=== PATIENT | female | born 1975 | race Caucasian/White ===

== ENCOUNTER → 2022-07-18 11:27 | Outpatient (BNVA) | payer BC, MEDICAID, SELFPAY | PROVIDERS: Family Provider Nurse Practitioner Family; PCP Nurse Practitioner Family; Visit Provider Internal Medicine Endocrinology, Diabetes & Metabolism | DX: E27.40 Unspecified adrenocortical insufficiency (principal); E55.9 Vitamin D deficiency, unspecified | CPT/HCPCS: 80053; 82306 ==

== ENCOUNTER → 2023-02-13 10:22 | Outpatient (BNVA) | payer BC, MEDICAID, SELFPAY | PROVIDERS: Family Provider Nurse Practitioner Family; PCP Nurse Practitioner Family; Visit Provider Internal Medicine Endocrinology, Diabetes & Metabolism | DX: E27.1 Primary adrenocortical insufficiency (principal); E55.9 Vitamin D deficiency, unspecified; E66.9 Obesity, unspecified; R68.89 Other general symptoms and signs; Z79.899 Other long term (current) drug therapy | CPT/HCPCS: 80053; 82306 ==

== ENCOUNTER → 2024-09-27 14:03 | Outpatient (BNVA) | payer OTHER, SELFPAY | PROVIDERS: Family Provider Nurse Practitioner Family; PCP Nurse Practitioner Family; Visit Provider Obstetrics & Gynecology | DX: R93.89 Abnormal findings on diagnostic imaging of other specified body structures (principal) | CPT/HCPCS: 87624 ==

== ENCOUNTER → 2024-11-22 10:50 | Outpatient (BNVA) | payer OTHER, SELFPAY | PROVIDERS: Family Provider Nurse Practitioner Family; PCP Nurse Practitioner Family; Visit Provider Obstetrics & Gynecology | DX: N85.00 Endometrial hyperplasia, unspecified (principal) | CPT/HCPCS: 76830 ==

== ENCOUNTER → 2025-04-05 15:38 | Outpatient (BNVA) | payer OTHER, SELFPAY | PROVIDERS: Family Provider Nurse Practitioner Family; PCP Nurse Practitioner Family; Visit Provider Obstetrics & Gynecology | DX: N85.00 Endometrial hyperplasia, unspecified (principal) | CPT/HCPCS: 76830 ==